=== PATIENT | male | born 1950 | race Caucasian/White ===

== ENCOUNTER 2023-04-13 11:55 | Emergency (ER) | payer MEDICAID ==
[~2023-04-13] VITALS: Ht 162.6 cm; Wt 73.0 kg
[2023-04-13 11:59] VITALS: O2SAT 98
[2023-04-13 14:27] LABS: CLARITY URINE CLOUDY (CLEAR); COLOR URINE YELLOW (YELLOW); GLUCOSE URINE NEGATIVE (NEGATIVE); KETONES URINE NEGATIVE (NEGATIVE); LEUKOCYTE ESTERASE URINE 3+ (NEGATIVE); NITRITE URINE POSITIVE (NEGATIVE); OCCULT BLOOD URINE 3+ (NEGATIVE); PH URINE 5.5 (4.5-8.0); PROTEIN URINE 2+ (NEGATIVE); SPECIFIC GRAVITY URINE 1.011 (1.005-1.030); UROBILINOGEN URINE 0.2 E.U./dL (0.2-1.0)
[2023-04-13 14:37] LABS: SQUAMOUS EPITHELIAL CELL URINE RARE /lpf (RARE/1+)
[2023-04-13 14:38] LABS: BACTERIA URINE 1+; RBC URINE 15-25 /hpf (0-2); WBC URINE 50-100 /hpf (0-2)
[2023-04-13 14:39] LABS: YEAST URINE NONE SEEN
[2023-04-13] MEDS ORDERED: CEPH500C2 MT (14:56)
[2023-04-13] MEDS ORDERED: CEFTRIAXONE SODIUM 1 G/VIAL IM ONE (15:00)
[2023-04-13 15:19] VITALS: BP 163/78; PULSE 70; RESP 17; TEMP 98.4
[2023-04-13] MEDS ORDERED: LIDOCAINE HCL/PF 1% 10 MG/ML 5ML VIAL INFIL ONE (15:30)
== END 2023-04-13 15:44 | disposition home or self-care (01) ==
LOC: ER 11:55
DX: N39.0 Urinary tract infection, site not specified (principal); R33.9 Retention of urine, unspecified; I10 Essential (primary) hypertension
CPT/HCPCS: 81003; 87086; 87186; 51702; 96372; 99284; J0696; Z7610 ×2; 99283

== ENCOUNTER 2023-07-12 10:51 | Emergency (ER) | payer MEDICAID ==
[~2023-07-12] VITALS: Ht 165.1 cm; Wt 81.0 kg
[~2023-07-12 10:51] MED LIST: AMLO10TA80 PO; CEPH500C2 MT; CIPR-264 MT; CIPR-264 PO; TAMS-11 PO
[2023-07-12 11:03] VITALS: BP 148/76; O2SAT 96
[2023-07-12 13:08] LABS: CLARITY URINE TURBID (CLEAR); COLOR URINE YELLOW (YELLOW); GLUCOSE URINE NEGATIVE (NEGATIVE); KETONES URINE NEGATIVE (NEGATIVE); LEUKOCYTE ESTERASE URINE 3+ (NEGATIVE); NITRITE URINE NEGATIVE (NEGATIVE); OCCULT BLOOD URINE 1+ (NEGATIVE); PROTEIN URINE 2+ (NEGATIVE); SPECIFIC GRAVITY URINE 1.015 (1.005-1.030); UROBILINOGEN URINE 0.2 E.U./dL (0.2-1.0)
[2023-07-12 13:23] LABS: SQUAMOUS EPITHELIAL CELL URINE NONE SEEN /lpf (RARE/1+); WBC URINE 50-100 /hpf (0-2)
[2023-07-12 13:24] LABS: BACTERIA URINE 4+
[2023-07-12] MEDS ORDERED: CIPR-263 MT (13:38)
[2023-07-12 14:58] VITALS: PULSE 73; RESP 18; TEMP 98.7
== END 2023-07-12 14:58 | disposition home or self-care (01) ==
LOC: ER 11:05
DX: N39.0 Urinary tract infection, site not specified (principal); T83.091A Other mechanical complication of indwelling urethral catheter, initial encounter; I10 Essential (primary) hypertension; X58.XXXA Exposure to other specified factors, initial encounter
CPT/HCPCS: 81003; 87077; 87186; 99283

== ENCOUNTER 2023-08-10 15:11 | Emergency (ER) | payer MEDICAID ==
[~2023-08-10] VITALS: Ht 165.1 cm; Wt 77.0 kg
[~2023-08-10 15:11] MED LIST changes: +CIPR-263 MT
[2023-08-10 15:19] VITALS: BP 161/67; PULSE 79; RESP 16; TEMP 98; O2SAT 98
== END 2023-08-10 19:07 | disposition left against medical advice (07) ==
LOC: ER 15:23
DX: R68.89 Other general symptoms and signs (principal); Z53.21 Procedure and treatment not carried out due to patient leaving prior to being seen by health care provider
CPT/HCPCS: 99281

== ENCOUNTER 2023-08-30 13:40 | Emergency (ER) | payer MEDICAID ==
[~2023-08-30] VITALS: Ht 154.9 cm; Wt 77.0 kg
[2023-08-30 13:57] VITALS: BP 172/79; PULSE 73; RESP 16; TEMP 98.3; O2SAT 100
== END 2023-08-30 15:37 | disposition home or self-care (01) ==
LOC: ER 13:40
DX: T83.091A Other mechanical complication of indwelling urethral catheter, initial encounter (principal); I10 Essential (primary) hypertension; N41.8 Other inflammatory diseases of prostate; Y92.89 Other specified places as the place of occurrence of the external cause
CPT/HCPCS: 51702; 99281; 99284

== ENCOUNTER 2023-10-03 16:27 | Emergency (ER) | payer MEDICAID ==
[~2023-10-03] VITALS: Ht 165.1 cm; Wt 79.0 kg
[2023-10-03 16:41] VITALS: O2SAT 96
[2023-10-03 18:11] LABS: CLARITY URINE CLOUDY (CLEAR); COLOR URINE RED (YELLOW); GLUCOSE URINE NEGATIVE (NEGATIVE); KETONES URINE NEGATIVE (NEGATIVE); LEUKOCYTE ESTERASE URINE 1+ (NEGATIVE); NITRITE URINE NEGATIVE (NEGATIVE); OCCULT BLOOD URINE 3+ (NEGATIVE); PH URINE 6.5 (4.5-8.0); PROTEIN URINE 2+ (NEGATIVE); SPECIFIC GRAVITY URINE 1.011 (1.005-1.030); UROBILINOGEN URINE 0.2 E.U./dL (0.2-1.0)
[2023-10-03 18:13] VITALS: BP 121/74; PULSE 60; RESP 18; TEMP 98.1
[2023-10-03 18:48] LABS: BACTERIA URINE 1+; RBC URINE TNTC /hpf (0-2); SQUAMOUS EPITHELIAL CELL URINE FEW /lpf (RARE/1+)
[2023-10-03] MEDS ORDERED: SULF1TAB48 MT (18:55)
== END 2023-10-03 18:28 | disposition home or self-care (01) ==
LOC: ER 16:27
DX: R33.9 Retention of urine, unspecified (principal); N48.89 Other specified disorders of penis; I10 Essential (primary) hypertension; Z79.899 Other long term (current) drug therapy
CPT/HCPCS: 81003; 99283

== ENCOUNTER 2023-10-24 16:25 | Emergency (ER) | payer MEDICAID ==
[~2023-10-24] VITALS: Ht 160 cm; Wt 72.7 kg
[~2023-10-24 16:25] MED LIST changes: +SULF1TAB48 MT
[2023-10-24 16:43] VITALS: BP 169/76; PULSE 55; RESP 16; TEMP 98.1; O2SAT 98
[2023-10-24 18:46] LABS: CLARITY URINE CLOUDY (CLEAR); COLOR URINE YELLOW (YELLOW); GLUCOSE URINE NEGATIVE (NEGATIVE); KETONES URINE NEGATIVE (NEGATIVE); LEUKOCYTE ESTERASE URINE 3+ (NEGATIVE); NITRITE URINE POSITIVE (NEGATIVE); OCCULT BLOOD URINE 3+ (NEGATIVE); PROTEIN URINE 2+ (NEGATIVE); SPECIFIC GRAVITY URINE 1.013 (1.005-1.030); UROBILINOGEN URINE 0.2 E.U./dL (0.2-1.0)
[2023-10-24] MEDS ORDERED: NITR-87 MT (19:14)
[2023-10-24 19:17] LABS: BACTERIA URINE 2+; RBC URINE TNTC /hpf (0-2); SQUAMOUS EPITHELIAL CELL URINE FEW /lpf (RARE/1+); WBC URINE TNTC /hpf (0-2)
== END 2023-10-24 23:01 | disposition home or self-care (01) ==
LOC: ER 17:44
DX: T83.091A Other mechanical complication of indwelling urethral catheter, initial encounter (principal); N39.0 Urinary tract infection, site not specified; I10 Essential (primary) hypertension; Z79.899 Other long term (current) drug therapy; X58.XXXA Exposure to other specified factors, initial encounter
CPT/HCPCS: 81003; 87077; 87186; 99283

== ENCOUNTER 2023-11-22 12:58 | Emergency (ER) | payer MEDICAID ==
[~2023-11-22] VITALS: Ht 154.9 cm; Wt 75.0 kg
[~2023-11-22 12:58] MED LIST changes: +NITR-87 MT
[2023-11-22 13:03] VITALS: O2SAT 99
[2023-11-22 14:52] LABS: CLARITY URINE CLOUDY (CLEAR); COLOR URINE YELLOW (YELLOW); GLUCOSE URINE NEGATIVE (NEGATIVE); KETONES URINE NEGATIVE (NEGATIVE); LEUKOCYTE ESTERASE URINE 3+ (NEGATIVE); NITRITE URINE NEGATIVE (NEGATIVE); OCCULT BLOOD URINE 3+ (NEGATIVE); PROTEIN URINE 2+ (NEGATIVE); SPECIFIC GRAVITY URINE 1.013 (1.005-1.030); UROBILINOGEN URINE 0.2 E.U./dL (0.2-1.0)
[2023-11-22 15:11] LABS: RBC URINE 50-100 /hpf (0-2)
[2023-11-22 15:12] LABS: BACTERIA URINE 2+; SQUAMOUS EPITHELIAL CELL URINE NONE SEEN /lpf (RARE/1+); WBC URINE 50-100 /hpf (0-2); YEAST URINE NONE SEEN
[2023-11-22] MEDS ORDERED: NITR-87 MT (15:23)
[2023-11-22 16:00] VITALS: BP 135/75; PULSE 77; RESP 17; TEMP 98
== END 2023-11-22 18:41 | disposition home or self-care (01) ==
LOC: ER 13:18
DX: N39.0 Urinary tract infection, site not specified (principal); I10 Essential (primary) hypertension; Z79.899 Other long term (current) drug therapy
CPT/HCPCS: 51702; 81003; 87077; 87186; 99284

== ENCOUNTER 2023-12-27 12:43 | Emergency (ER) | payer BC, MEDICAID ==
[~2023-12-27] VITALS: Ht 162.6 cm; Wt 63.0 kg
[2023-12-27 12:58] VITALS: BP 144/66; PULSE 54; RESP 16; TEMP 98.3; O2SAT 97
== END 2023-12-27 17:26 | disposition home or self-care (01) ==
LOC: ER 12:43
DX: R33.9 Retention of urine, unspecified (principal); Z46.6 Encounter for fitting and adjustment of urinary device; Z79.899 Other long term (current) drug therapy
CPT/HCPCS: 99281

== ENCOUNTER 2024-01-30 15:15 | Emergency (ER) | payer MEDICAID ==
[~2024-01-30] VITALS: Ht 167.6 cm; Wt 80.0 kg
[2024-01-30 15:31] VITALS: BP 152/63; PULSE 66; RESP 18; TEMP 98.6; O2SAT 98
[2024-01-31] MEDS ORDERED: CEFP200T13 MT (01:23)
== END 2024-01-30 18:35 | disposition home or self-care (01) ==
LOC: ER 15:15
DX: Z46.6 Encounter for fitting and adjustment of urinary device (principal); Z68.28 Body mass index [BMI] 28.0-28.9, adult; Z79.899 Other long term (current) drug therapy
CPT/HCPCS: 99284

== ENCOUNTER 2024-01-30 21:34 | Emergency (ER) | payer MEDICAID ==
[~2024-01-30] VITALS: Ht 162.6 cm; Wt 78.0 kg
[2024-01-30 21:45] VITALS: O2SAT 98
[2024-01-30 21:47] VITALS: BP 171/67; PULSE 67; RESP 15; TEMP 98.4
[2024-01-31] MEDS ORDERED: CEFP200T13 MT (01:23)
== END 2024-01-31 02:08 | disposition home or self-care (01) ==
LOC: ER 21:45
DX: Z46.6 Encounter for fitting and adjustment of urinary device (principal); Z79.899 Other long term (current) drug therapy
CPT/HCPCS: 99281

== ENCOUNTER 2024-03-13 12:57 | Emergency (ER) | payer MEDICAID ==
[~2024-03-13] VITALS: Ht 160 cm; Wt 82.0 kg
[~2024-03-13 12:57] MED LIST changes: +CEFP200T13 MT
[2024-03-13 13:09] VITALS: O2SAT 97
[2024-03-13 15:00] VITALS: BP 140/78; PULSE 69; RESP 17; TEMP 36.66960; O2SAT 100
== END 2024-03-13 15:53 | disposition home or self-care (01) ==
LOC: ER 12:57
DX: T83.098A Other mechanical complication of other urinary catheter, initial encounter (principal); I10 Essential (primary) hypertension; Z79.899 Other long term (current) drug therapy; X58.XXXA Exposure to other specified factors, initial encounter; Y93.89 Activity, other specified; Y92.89 Other specified places as the place of occurrence of the external cause; Y99.8 Other external cause status
CPT/HCPCS: 51702; 99284; Z7610

== ENCOUNTER 2024-05-01 12:24 | Emergency (ER) | payer MEDICAID ==
[~2024-05-01] VITALS: Ht 152.4 cm; Wt 77.0 kg
[2024-05-01 12:34] VITALS: O2SAT 99
[2024-05-01 13:07] VITALS: BP 133/78; PULSE 61; RESP 16; TEMP 98.2; O2SAT 100
== END 2024-05-01 16:39 | disposition home or self-care (01) ==
LOC: ER 12:48
DX: T83.9XXA Unspecified complication of genitourinary prosthetic device, implant and graft, initial encounter (principal); I10 Essential (primary) hypertension; Z98.890 Other specified postprocedural states; Z79.899 Other long term (current) drug therapy
CPT/HCPCS: 51702; 99284

== ENCOUNTER 2024-06-05 11:42 | Emergency (ER) | payer MEDICAID ==
[~2024-06-05] VITALS: Ht 162.6 cm; Wt 79.3 kg
[2024-06-05 11:44] VITALS: O2SAT 99
[2024-06-05 11:51] VITALS: BP 115/79; PULSE 61; RESP 16; TEMP 97.9; O2SAT 98
== END 2024-06-05 12:46 | disposition home or self-care (01) ==
LOC: ER 11:52
DX: Z46.6 Encounter for fitting and adjustment of urinary device (principal); I10 Essential (primary) hypertension; Z79.899 Other long term (current) drug therapy
CPT/HCPCS: 51702; 99284

== ENCOUNTER 2024-07-10 12:31 | Emergency (ER) | payer MEDICAID ==
[~2024-07-10] VITALS: Ht 167.6 cm; Wt 82.0 kg
[2024-07-10 12:32] VITALS: O2SAT 100
[2024-07-10 12:43] VITALS: BP 166/69; PULSE 78; RESP 16; TEMP 98.5; O2SAT 98
== END 2024-07-10 18:35 | disposition home or self-care (01) ==
LOC: ER 12:31
DX: Z46.6 Encounter for fitting and adjustment of urinary device (principal); I10 Essential (primary) hypertension
CPT/HCPCS: 51702; 99284

== ENCOUNTER 2024-09-06 14:03 | Emergency (ER) | payer MEDICAID ==
[~2024-09-06] VITALS: Ht 165.1 cm; Wt 77.0 kg
[2024-09-06 14:07] VITALS: O2SAT 98
[2024-09-06 14:54] LABS: CLARITY URINE TURBID (CLEAR); COLOR URINE YELLOW (YELLOW); GLUCOSE URINE NEGATIVE (NEGATIVE); KETONES URINE NEGATIVE (NEGATIVE); LEUKOCYTE ESTERASE URINE 3+ (NEGATIVE); NITRITE URINE NEGATIVE (NEGATIVE); OCCULT BLOOD URINE 2+ (NEGATIVE); PROTEIN URINE 2+ (NEGATIVE); SPECIFIC GRAVITY URINE 1.014 (1.005-1.030); UROBILINOGEN URINE 0.2 E.U./dL (0.2-1.0)
[2024-09-06 15:09] LABS: BACTERIA URINE 4+; SQUAMOUS EPITHELIAL CELL URINE NONE SEEN /lpf (RARE/1+); WBC URINE 15-25 /hpf (0-2); YEAST URINE NONE SEEN
[2024-09-06] MEDS ORDERED: NITR-87 MT (16:16)
[2024-09-06] MEDS: NITROFURANTOIN 100MG M/M CAPSULE PO ONE (16:42)
[2024-09-06 17:03] VITALS: BP 150/75; PULSE 80; RESP 18; TEMP 36.7; O2SAT 100
== END 2024-09-06 17:05 | disposition home or self-care (01) ==
LOC: ER 14:03
DX: N39.0 Urinary tract infection, site not specified (principal); I10 Essential (primary) hypertension; N40.0 Benign prostatic hyperplasia without lower urinary tract symptoms; Z79.899 Other long term (current) drug therapy
CPT/HCPCS: 51702; 81003; 99284

== ENCOUNTER 2024-11-06 10:17 | Emergency (ER) | payer MEDICAID ==
[~2024-11-06] VITALS: Ht 160 cm; Wt 81.6 kg
[~2024-11-06 10:17] MED LIST changes: -TAMS-11 PO; +TAMS-54 PO
[2024-11-06 10:25] VITALS: O2SAT 97
[2024-11-06 13:52] LABS: CLARITY URINE CLOUDY (CLEAR); COLOR URINE YELLOW (YELLOW); GLUCOSE URINE NEGATIVE (NEGATIVE); KETONES URINE NEGATIVE (NEGATIVE); LEUKOCYTE ESTERASE URINE 3+ (NEGATIVE); NITRITE URINE NEGATIVE (NEGATIVE); OCCULT BLOOD URINE 2+ (NEGATIVE); PROTEIN URINE 2+ (NEGATIVE); SPECIFIC GRAVITY URINE 1.014 (1.005-1.030); UROBILINOGEN URINE 0.2 E.U./dL (0.2-1.0)
[2024-11-06] MEDS ORDERED: NITR-87 MT (14:01)
[2024-11-06 14:17] VITALS: BP 148/77; PULSE 90; RESP 18; TEMP 36.7; O2SAT 97
[2024-11-06 14:34] LABS: TRIPLE PHOSPHATE CRYSTAL URINE 1+ /lpf
[2024-11-06 14:36] LABS: BACTERIA URINE 4+; SQUAMOUS EPITHELIAL CELL URINE NONE SEEN /lpf (RARE/1+)
== END 2024-11-06 14:15 | disposition home or self-care (01) ==
LOC: ER 10:17
DX: T83.018A Breakdown (mechanical) of other urinary catheter, initial encounter (principal); I10 Essential (primary) hypertension; Z79.899 Other long term (current) drug therapy; Y92.89 Other specified places as the place of occurrence of the external cause
CPT/HCPCS: 51702; 81003; 87077; 87186; 99284

== ENCOUNTER 2025-02-22 13:18 | Emergency (ER) | payer MEDICAID ==
[~2025-02-22] VITALS: Ht 162.6 cm; Wt 80.0 kg
[2025-02-22 13:30] VITALS: TEMP 36.7; O2SAT 99
[2025-02-22 14:54] LABS: CLARITY URINE CLOUDY (CLEAR); COLOR URINE YELLOW (YELLOW); GLUCOSE URINE NEGATIVE (NEGATIVE); KETONES URINE NEGATIVE (NEGATIVE); LEUKOCYTE ESTERASE URINE 3+ (NEGATIVE); NITRITE URINE NEGATIVE (NEGATIVE); OCCULT BLOOD URINE 3+ (NEGATIVE); PH URINE 5.5 (4.5-8.0); PROTEIN URINE 2+ (NEGATIVE); SPECIFIC GRAVITY URINE 1.013 (1.005-1.030); UROBILINOGEN URINE 0.2 E.U./dL (0.2-1.0)
[2025-02-22 15:15] LABS: BACTERIA URINE 1+; SQUAMOUS EPITHELIAL CELL URINE 1+ /lpf (RARE/1+)
[2025-02-22 15:19] VITALS: BP 146/71; PULSE 62; RESP 18; O2SAT 100
== END 2025-02-22 15:27 | disposition home or self-care (01) ==
LOC: ER 13:18
DX: R33.9 Retention of urine, unspecified (principal); I10 Essential (primary) hypertension; Z79.899 Other long term (current) drug therapy
CPT/HCPCS: 51702; 81003; 99284

== ENCOUNTER 2025-05-24 10:42 | Emergency (ER) | payer MEDICAID ==
[~2025-05-24] VITALS: Ht 162.6 cm; Wt 81.0 kg
[2025-05-24 10:55] VITALS: O2SAT 96
[2025-05-24 13:16] VITALS: BP 122/82; PULSE 72; RESP 18; TEMP 36.7; O2SAT 99
== END 2025-05-24 13:17 | disposition home or self-care (01) ==
LOC: ER 11:09
DX: T83.091A Other mechanical complication of indwelling urethral catheter, initial encounter (principal); R33.9 Retention of urine, unspecified; I10 Essential (primary) hypertension; Y92.89 Other specified places as the place of occurrence of the external cause
CPT/HCPCS: 51702; 99284

== ENCOUNTER 2025-07-02 12:09 | Emergency (ER) | payer MEDICAID ==
[~2025-07-02] VITALS: Ht 165.1 cm; Wt 86.0 kg
[2025-07-02 12:15] VITALS: O2SAT 97
[2025-07-02 12:33] VITALS: BP 152/76; PULSE 58; RESP 14; TEMP 36.7; O2SAT 98
[2025-07-02] MEDS ORDERED: CEPH500C2 MT (16:11)
[2025-07-02 16:37] LABS: CLARITY URINE CLEAR (CLEAR); GLUCOSE URINE NEGATIVE (NEGATIVE); KETONES URINE NEGATIVE (NEGATIVE); LEUKOCYTE ESTERASE URINE 2+ (NEGATIVE); NITRITE URINE NEGATIVE (NEGATIVE); OCCULT BLOOD URINE 3+ (NEGATIVE); PH URINE 6.0 (4.5-8.0); PROTEIN URINE 3+ (NEGATIVE); SPECIFIC GRAVITY URINE 1.014 (1.005-1.030); UROBILINOGEN URINE 0.2 E.U./dL (0.2-1.0)
[2025-07-02 16:45] LABS: COLOR URINE RED (YELLOW); SQUAMOUS EPITHELIAL CELL URINE FEW /lpf (RARE/1+)
[2025-07-02 16:46] LABS: BACTERIA URINE 2+; RBC URINE TNTC /hpf (0-2); WBC URINE TNTC /hpf (0-2)
== END 2025-07-02 16:19 | disposition home or self-care (01) ==
LOC: ER 12:44
DX: T83.9XXA Unspecified complication of genitourinary prosthetic device, implant and graft, initial encounter (principal); Z46.6 Encounter for fitting and adjustment of urinary device; I10 Essential (primary) hypertension; Z79.899 Other long term (current) drug therapy; Y92.89 Other specified places as the place of occurrence of the external cause
CPT/HCPCS: 51702; 81003; 87077; 87186; 99284